=== PATIENT | female | born 1955 | race Caucasian/White ===

== ENCOUNTER 2024-03-12 13:38 | Emergency (ER) | payer OTHER, SELFPAY ==
[2024-03-12 13:42] VITALS: BP 192/117
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
[2024-03-12] MEDS: NORCO 5/325 1 TABLET PO (15:01)
[2024-03-12] MEDS: ERYTHROMYCIN 0.5% OPHTHALMIC OINTMENT 1 APPLIC OPHTH (15:04)
[2024-03-12 15:14] VITALS: BP 166/95
== END 2024-03-12 15:15 | disposition home or self-care (01) ==
LOC: EMR 13:38
PROVIDERS: EMERGENCY PHYSICIAN Emergency Medicine; FAMILY PHYSICIAN Family Medicine
DX: S05.01XA Injury of conjunctiva and corneal abrasion without foreign body, right eye, initial encounter (principal); X15.8XXA Contact with other hot household appliances, initial encounter
CPT/HCPCS: 99283